=== PATIENT | female | born 1995 | race Two or more races ===

== ENCOUNTER 2016-07-17 13:39 | Emergency (ER) | payer SELFPAY ==
[~2016-07-17] VITALS: Ht 165.1 cm; Wt 80.7 kg
[2016-07-17 13:53] VITALS: BP 118/71
== END 2016-07-17 16:09 | disposition left against medical advice (07) ==
LOC: ER 13:39
DX: R10.10 Upper abdominal pain, unspecified (principal); R11.2 Nausea with vomiting, unspecified; Z53.21 Procedure and treatment not carried out due to patient leaving prior to being seen by health care provider